=== PATIENT | male | born 1985 | race Caucasian/White ===

== ENCOUNTER 2018-09-15 08:02 | Outpatient (CLI) | payer OTHER ==
[2018-09-15 08:21] LABS: EOSINOPHILS % 2.9 % (0.0-6.8); MEAN CORPUSCULAR HEMOGLOBIN 29.7 pg (28.0-34.0); MONOCYTES % 8.5 % (0.0-11.0); NEUTROPHILS # 5.3 # k/uL (1.4-7.7)
[2018-09-15 08:43] LABS: eGFR (Non-African) > 60
--- NOTE | 2018-09-15 09:22 | Diagnostic Imaging Report ---
<p>Your browser does not support iframes.</p> AI BORDEN [facility] [id number] [facility] [address] [address] Report Submission Date: Sep 15, 2018 8:47:06 AM BASEBALL INSPECTOR AND REPAIRER Patient Study Name: LUIS CARLOS VALLECILLO Date: Sep 15, 2018 8:12:53 AM BASEBALL INSPECTOR AND REPAIRER Modality Type: US Gender: M Description: US RUQ : 89 Institution: [facility] Physician: AI BORDEN Examination: Ultrasound gallbladder History: Pt has had 1 month of epigastric pain Findings: Sonographic evaluation of the right upper quadrant demonstrates the gallbladder without stones or sludge. Gallbladder wall measures 1.7 mm. Common bile duct measures 3.7 mm. No intrahepatic biliary dilation. Liver demonstrates increased echogenicity. No mass or cyst. Normal flow on color analysis. Normal portal vein Doppler waveform. Right kidney measures 12.5 cm in length. No cortical mass or cyst. No hydronephrosis. Pancreatic region without gross irregularity. Impression: No gallstone or obstruction. Mildly fatty liver. Electronically signed on Sep 15, 2018 8:47:06 AM BASEBALL INSPECTOR AND REPAIRER by: Raza FELIX
== END 2018-09-15 08:30 ==
LOC: RAD 08:02
PROVIDERS: ATTEND Family Medicine
DX: R10.13 Epigastric pain (principal)
CPT/HCPCS: 36415; 76705; 80053; 83690; 85025